=== PATIENT | male | born 1965 ===

== ENCOUNTER 2017-02-24 14:35 | Emergency (ER) | payer BC ==
[2017-02-24 14:43] VITALS: O2SAT 97
--- NOTE | 2017-02-24 15:18 | C.PDOC ---
History Of Present Illness 51 year old male who presents to the ER with a complaint of left leg pain from the ankle to the knee for the past 3 weeks. Patient also reports redness and irritation of the right eye for the past couple of weeks. Denies any recent injury/trauma, weakness, or numbness. Time Seen by Provider: 02/24/17 14:50 Chief Complaint (Nursing): Lower Extremity Problem/Injury History Per: Patient History/Exam Limitations: no limitations Onset/Duration Of Symptoms: Days Current Symptoms Are (Timing): Still Present Recent travel outside of the [place]: No Past Medical History Reviewed: Historical Data, Nursing Documentation, Vital Signs Vital Signs: Last Vital Signs Temp 98.2 F 02/24/17 16:01 Pulse 69 02/24/17 16:01 Resp 18 02/24/17 16:01 BP 108/68 02/24/17 16:01 Pulse Ox 97 02/24/17 21:54 - Medical History PMH: Back Problems Surgical History: No Surg Hx Family History: States: Unknown Family Hx - Social History Hx Alcohol Use: No Hx Substance Use: No - Immunization History Hx Tetanus Toxoid Vaccination: No Hx Influenza Vaccination: No Hx Pneumococcal Vaccination: No Review Of Systems Musculoskeletal: Positive for: Leg Pain Neurological: Negative for: Weakness, Numbness Physical Exam - Physical Exam Appears: Non-toxic Skin: Normal Color, Warm, Dry Head: Atraumatic, Normacephalic Eye(s): bilateral: PERRL, EOMI, right: Other (Mildly erythematous growth medial to cornea), left: Normal Inspection Extremity: Tenderness (Left lateral malleolus), Calf Tenderness (Left), No Deformity, No Swelling Pulses: Left Dorsalis Pedis: Normal, Right Dorsalis Pedis: Normal Neurological/Psych: Oriented x3, Normal Speech, Normal Cognition Gait: Steady ED Course And Treatment O2 Sat by Pulse Oximetry: 97 (Room air) Pulse Ox Interpretation: Normal - Other Rad Ankle xray X-Ray: Viewed By Me, Read By Radiologist Interpretation: Accession No. : [id number]. Patient Name / ID : KUNAL [id number] / [id number]. Exam Date : 02/24/2017 15:24:39 ( Approved ). Study Comment : Sex / Age : M / 51Y. Creator : Aisha Mcgrath MD. Dictator : Manager Equity : [facility] Manager : Aisha Mcgrath MD. Approver2 : Report Date : 02/24/2017 15:43:51. My Comment : . PROCEDURE: Left Ankle Radiographs. HISTORY: pain, denies trauma. COMPARISON: None available. FINDINGS: BONES: No acute displaced fracture. JOINTS: No dislocation. SOFT TISSUES: Vascular calcifications. No evidence of radiopaque foreign body. OTHER FINDINGS: None. IMPRESSION: No acute findings. Progress Note: Left ankle x-ray ordered. Duplex study ordered and negative for DVT. Jeovany wrap was applied, patient refused crutches. Disposition - Disposition Referrals: Luciano Terry III, MD [Staff Provider] - Flynn Obrien DPM [Staff Provider] - Hardeep Mendez MD [Staff Provider] - Disposition: HOME/ ROUTINE Disposition Time: 15:55 Condition: STABLE Additional Instructions: Follow up with PMD, Orthopedist or Final Assembly Inspector within 1-2 days. Return to Ed if feel worse. Prescriptions: Ciprofloxacin 0.3% [Ciloxan 0.3% Ophth SOLN] 1 drop OS Q2 #1 bottle Naproxen [Naprosyn] 1 tab PO BID PRN #25 tab PRN Reason: Pain Instructions: Pterygium (ED), Arthralgia (ED) Forms: Kanari (Somali) Print Language: MOZAMBICAN - Clinical Impression Clinical Impression: Ankle pain, Pterygium - Scribe Statement The provider has reviewed the documentation as recorded by the Scribkris Friedman All medical record entries made by the Scribe were at my direction and personally dictated by me. I have reviewed the chart and agree that the record accurately reflects my personal performance of the history, physical exam, medical decision making, and the department course for this patient. I have also personally directed, reviewed, and agree with the discharge instructions and disposition.
--- NOTE | 2017-02-24 15:45 | RAD ---
PROCEDURE: Left Ankle Radiographs. HISTORY: pain, denies trauma. COMPARISON: None available. FINDINGS: BONES: No acute displaced fracture. JOINTS: No dislocation. SOFT TISSUES: Vascular calcifications. No evidence of radiopaque foreign body. OTHER FINDINGS: None. IMPRESSION: No acute findings.
[2017-02-24 16:02] VITALS: BP 108/68; PULSE 69; RESP 18; TEMP 98.2
--- NOTE | 2017-03-01 09:35 | VASCLAB ---
PROCEDURE: Left Lower Extremity Venous Duplex Exam. HISTORY: calf pain PRIORS: None. TECHNIQUE: Left common femoral, femoral, popliteal and posterior tibial, peroneal and great saphenous veins were evaluated. Flow was assessed with color Doppler, compressibility, assessment of phasic flow and augmentation response. Report prepared by MITALI Maravilla, RVT FINDINGS: LEFT: 1. Common Femoral Vein: 1.1. Compressibility - Fully compressible: Thrombus - None : Flow - Phasic: Augmentation -Normal: Reflux - None. 2. Femoral Vein: 2.1. Compressibility - Fully compressible: Thrombus - None: Flow - Phasic: Augmentation -Normal: Reflux - None. 3. Popliteal Vein: 3.1. Compressibility - Fully compressible: Thrombus - None: Flow - Phasic: Augmentation -Normal: Reflux - None. 4. Posterior Tibial Vein: 4.1. Compressibility - Fully compressible: Thrombus - None: Flow - Phasic: Augmentation -Normal: Reflux - None. 5. Peroneal Vein: 5.1. Compressibility - Fully compressible: Thrombus - None: Flow - Phasic: Augmentation -Normal: Reflux - None. 6. Great Saphenous Vein: 6.1. Compressibility - Fully compressible: Thrombus - None: Flow - Phasic: Augmentation - Normal: Reflux - None. OTHER FINDINGS: IMPRESSION: No evidence of deep or superficial vein thrombosis of the left lower extremity with excellent venous flow. Normal valve function noted of the left side. Normal venous flow noted in the right common femoral vein.
== END 2017-02-24 16:15 | disposition home or self-care (01) ==
LOC: C.ER 14:35
DX: M25.572 Pain in left ankle and joints of left foot (principal); H11.001 Unspecified pterygium of right eye